=== PATIENT | male | born 1980 | race Caucasian/White ===

== ENCOUNTER 2018-08-03 10:05 | Emergency (ER) | payer OTHER, SELFPAY ==
[2018-08-03 10:11] VITALS: BP 137/87; PULSE 102; RESP 18; TEMP 37.2; O2SAT 95
--- NOTE | 2018-08-03 11:14 | ED.GENADUL_ITS ---
Discharge Plan Disposition Patient Disposition: HOME Condition: Good Discharge Details Chief Complaint: Laceration Clinical Impression: Laceration of finger, middle Primary Care Provider: NONE,NONE ED Provider: Clark Francis Home Meds and New Rx's Prescriptions: No Action No Known Home Meds RF: 0 Discharge Instructions Instructions: Finger Laceration (ED) Additional Instructions: Please return in 7 days to have your laceration reassessed and your sutures potentially removed. If you notice any redness, swelling, or yellow-green discharge please return immediately. If you notice any worsening of your symptoms, or any new symptoms such as vomiting, diarrhea, fever, chills, shortness of breath, chest pain, numbness, weakness, or fainting , please return immediately to the emergency department for reevaluation. Please follow up with your primary care provider as soon as possible for reassessment and reevaluation. As always, it was a pleasure participating in your medical care today. Medical Decision Making This is a very pleasant 37-year-old male who presents for evaluation of a laceration. Immunizations are up-to-date. Physical exam demonstrates a 1.5 cm laceration on the dorsal aspect of his PIP joint on his middle finger on the left hand. He is ambidextrous. Sensation is intact distally to the laceration, capillary refill is brisk. Movement is normal with no signs of tendon involvement or decreased movement or sensation. The area was anesthetized with 3 cc of 2% lidocaine, the area was then scrubbed vigorously with chlorhexidine scrub, and then washed and irrigated with copious amounts of normal saline and high-powered washing with normal saline. After cleansing, the area was sutured with 4 simple interrupted sutures using 5-0 Ethilon. A small amount of Dermabond was then placed on the sutures for knot stasis. Patient tolerated procedure well. He will be discharged home with follow-up instructions here in the ED for removal of the sutures. We discussed red flags which to return the patient understands. I have extensively reviewed the treatment plan and discharge instructions with the patient. I have addressed all patient concerns at this time. The patient was made aware of what symptoms to monitor for that would warrant a return to the emergency department. Discussed the plan with the patient, they demonstrate verbal understanding and agreement with our assessment and plan at this time. HPI General Date/Time Provider Initiated Documentation: 08/03/18 10:31 . HPI Narrative: This is a 37-year-old male with no significant past medical history hernia no allergies whose tetanus shot is up-to-date within the last 6 months, who presents today for evaluation of laceration. He is ambidextrous. He states that he was working in his shop when clean metal instrument brushed up against his left middle finger causing a small laceration over the PIP joint, as well as a small abrasion over the medial aspect of the dorsal index finger. The patient immediately applied pressure and came to the ER for evaluation. He denies any associated numbness tingling or weakness. Aside for a mild burning sensation he denies any pain. No radiation of his symptoms. He has no other complaints at this time. Related Data Home Medications Medication Instructions Recorded Confirmed Unknown [No Known Home Meds] 08/03/18 08/03/18 Allergies Allergy/AdvReac Type Severity Reaction Status Date / Time No Known Allergies Allergy Unverified 08/03/18 10:15 General Stated Complaint: Laceration JULISSA: 4 Review of Systems Review of Systems All systems reviewed & are unremarkable except as noted in HPI and below PFSH Social History Smoking/Tobacco Use Status: Current every day Exam Narrative Exam Narrative: 1.Const: Well-nourished, Well-developed, appearing stated age 2.Eyes: PERRL, no conjunctival injection, and symmetrical lids. 3.ENT: Atraumatic external nose and ears. Moist MM. Neck: Symmetric, trachea midline, No thyromegaly. 4.CVS: +S1/S2, No murmurs or gallops. Peripheral pulses 2+ and equal in all extremities. Brisk capillary refill in all extremities. 5.RESP: Unlabored respiratory effort. Clear to auscultation bilaterally. No wheezes rales or rhonchi 6.GI: Soft, Nontender/Nondistended, No hepatosplenomegaly. No guarding or rebound. 7.MSK: Normocephalic, Extremities w/o deformity or ttp No cyanosis or clubbing, Normal movement of all extremities patient demonstrates good flexion extension and movement in all directions for the middle index and ring fingers. No signs of joint laxity, no evidence of weakness on extension for the PIP or DIP joint when placed in isolation. 8.Skin: Warm, Dry. No rashes or lesions. Patient demonstrates a small 1.5 cm laceration to the dorsal aspect of the PIP joint on the middle finger, no evidence of tendon or bone involvement. Minimal bleeding. Capillary refill is brisk distal to the wound. Sensation is intact. Small abrasion noted over the medial aspect of the dorsal component of the index finger on the left. 9.Neuro: project architect II-XII grossly intact. Sensation grossly intact, no focal neurologic deficits. Patient has +5 out of 5 strength in the left and right distal hands in the medial, ulnar, radial nerve distribution, intact light touch sensation in the left and right hands, and +2 over 2 radial pulses. Two- point discrimination intact as well as light touch and pinprick intact distal to the laceration. Course Vital Signs Temperature 37.2 C 08/03/18 10:11 Pulse 102 H 08/03/18 10:11 Respiratory Rate 18 08/03/18 10:11 Blood Pressure 137/87 08/03/18 10:11 Pulse Oximetry 95 08/03/18 10:11 Temperature 37.2 C 08/03/18 10:11 Temperature Source Skin 08/03/18 10:11 Pulse 102 H 08/03/18 10:11 Respiratory Rate 18 08/03/18 10:11 Respiratory Effort 08/03/18 10:13 Blood Pressure 137/87 08/03/18 10:11 Blood Pressure Position Sitting 08/03/18 10:11 Pulse Oximetry 95 08/03/18 10:11 Oxygen Delivery Method Room Air 08/03/18 10:11 Oxygen Flow Rate 0 08/03/18 10:11 Pain Level 1 08/03/18 10:42
== END 2018-08-03 10:40 | disposition home or self-care (01) ==
PROVIDERS: Emergency Provider Student in an Organized Health Care Education/Training Program
DX: S61.213A Laceration without foreign body of left middle finger without damage to nail, initial encounter (principal); W26.8XXA Contact with other sharp object(s), not elsewhere classified, initial encounter
CPT/HCPCS: 12001